=== PATIENT | female | born 1980 | race Caucasian/White ===

== ENCOUNTER 2017-07-10 00:20 | Inpatient (IN) | payer BC ==
[~2017-07-10] VITALS: Ht 175.3 cm; Wt 76.2 kg
[2017-07-10] MEDS ORDERED: OXYTOCIN/0.9 % SODIUM CHLORIDE 1,000 ML IV SCH (00:31)
[2017-07-10 01:30] LABS: HEMOGLOBIN 8.6 g/dL (12.0-16.0); LYMPHOCYTES # (AUTO) 1.9 K/uL (1.0-5.5)
[2017-07-10 01:48] LABS: BASOPHILS % (AUTO) 0.4 % (0.0-2.0); EOSINOPHILS # (AUTO) 0.1 K/uL (0.0-0.4); EOSINOPHILS % (AUTO) 0.8 % (0.0-4.0); HEMATOCRIT 26.4 % (36-48); LYMPHOCYTES % (AUTO) 27.2 % (20.5-51.5); MEAN CORPUSCULAR HEMOGLOBIN 22 pg (27-31); MEAN CORPUSCULAR HGB CONC 32 % (32-36); MEAN CORPUSCULAR VOLUME 68 fL (79.0-98.0); MONOCYTES # (AUTO) 0.5 K/uL (0.0-1.0); MONOCYTES % (AUTO) 7.9 % (1.7-9.3); NEUTROPHILS # (AUTO) 4.4 K/uL (1.8-7.7); NEUTROPHILS % (AUTO) 63.7 % (40.0-70.0); PLATELET COUNT (AUTO) 180 K/uL (130-430); RED BLOOD CELL COUNT(AUTO) 3.87 MIL/uL (4.2-6.2); RED CELL DISTRIBUTION WIDTH 17.2 % (9.0-15.0); WHITE BLOOD COUNT (AUTO) 6.9 K/uL (4.8-10.8)
[2017-07-10] MEDS: LR 1,000 ML IV SCH ×2 (01:56→09:19)
[2017-07-10] MEDS: NALBUPHINE HCL 10 MG/ML AMP IVP PRN ×2 (05:31→09:36)
[2017-07-10] MEDS ORDERED: fentaNYL CITRATE/PF 100 MCG/2 ML AMP ONE (07:46)
[2017-07-10] MEDS ORDERED: ROPIVACAINE 0.2% 100 ML ONE (07:47)
[2017-07-10 08:20] VITALS: BP_SYST 115
[2017-07-10] MEDS ORDERED: LR 500 ML IV ONE (10:35)
[2017-07-10] MEDS ORDERED: FENT2mCg/mL-ROPIVA0.2%/NS EPID 150 ML EP SCH (10:45)
[2017-07-10] MEDS ORDERED: TERBUTALINE SULFATE 1 MG/ML VIAL SUBCUT ONE (11:51)
[2017-07-10] MEDS ORDERED: TERBUTALINE SULFATE 1 MG/ML VIAL ONE (11:51)
[2017-07-10] MEDS ORDERED: ceFAZolin SODIUM 1 GM VIAL ONE (11:54)
[2017-07-10] MEDS ORDERED: CEFAZOLIN 1 GM IVPB PREMIX 100 ML IV ONE (11:55)
[2017-07-10] MEDS ORDERED: MORPHINE SULFATE 10MG/10ML PF AMP EP SCH (12:30)
[2017-07-10] MEDS ORDERED: DIPHENHYDRAMINE INJ 50 MG/ML VIAL IVP PRN (12:30)
[2017-07-10] MEDS ORDERED: ONDANSETRON HCL 4 MG/2 ML VIAL IVP PRN (12:30)
[2017-07-10] MEDS ORDERED: fentaNYL CITRATE/PF 100 MCG/2 ML AMP IVP PRN ×2 (12:30)
[2017-07-10] MEDS ORDERED: METOCLOPRAMIDE HCL 10 MG/2 ML VIAL IVP PRN (12:30)
[2017-07-10] MEDS ORDERED: KETOROLAC TROMETHAMINE 60 MG/2 ML VIAL IM PRN (12:30)
[2017-07-10] MEDS ORDERED: NALOXONE HCL 0.4 MG/ML AMP (NARCAN) IVP PRN ×2 (12:30)
[2017-07-10] MEDS ORDERED: NALBUPHINE HCL 10 MG/ML AMP IVP PRN (12:30)
[2017-07-10] MEDS ORDERED: MEASLES,MUMPS&RUBELLA VACC/PF 12500 UNIT/0.5 ML VIAL SUBQ PRN (12:45)
[2017-07-10] MEDS ORDERED: DIPH-TET-PERTUS Vaccine 0.5 ML VIAL (ADACEL) I.M. PRN (12:45)
[2017-07-10] MEDS ORDERED: RHO(D) IMMUNE GLOBULIN/MALTOSE 1500 UNITS/1.3 ML (WINHRO) IM PRN (12:45)
[2017-07-10] MEDS ORDERED: LANOLIN 7 GM OINT. TP PRN (12:45)
[2017-07-10] MEDS ORDERED: BISACODYL 10 MG/SUPPOSITORY RC PRN (12:45)
[2017-07-10] MEDS ORDERED: OXYTOCIN/0.9 % SODIUM CHLORIDE 1,000 ML IV ONE (12:45)
[2017-07-10] MEDS ORDERED: ANUSOL 1 EA SUPP.RECT (PREPARATION H) RC PRN (12:45)
[2017-07-10] MEDS ORDERED: LR 1,000 ML IV SCH (12:45)
[2017-07-10 12:51] VITALS: BP_SYST 108
[2017-07-10] MEDS ORDERED: KETOROLAC TROMETHAMINE 60 MG/2 ML VIAL IM ONE (14:44)
[2017-07-10] MEDS ORDERED: IBUPROFEN 600 MG TABLET PO SCH (18:00)
[2017-07-10] MEDS: CEFAZOLIN 1 GM IVPB PREMIX 50 ML IV SCH ×2 (18:01→23:56)
[2017-07-10] MEDS ORDERED: TEMAZEPAM 15 MG CAPSULE PO PRN (21:00)
[2017-07-11] MEDS: CEFAZOLIN 1 GM IVPB PREMIX 50 ML IV SCH (06:11)
[2017-07-11] MEDS: IBUPROFEN 600 MG TABLET PO SCH ×3 (06:12→18:41)
[2017-07-11] MEDS ORDERED: LIDOCAINE PF 2%, 200 MG/10 ML AMPUL.LUER (EPIDURAL) INJ ONE (06:50)
[2017-07-11 07:04] LABS: BASOPHILS % (AUTO) 0.3 % (0.0-2.0); EOSINOPHILS % (AUTO) 0.1 % (0.0-4.0); HEMATOCRIT 22.6 % (36-48); HEMOGLOBIN 7.2 g/dL (12.0-16.0); LYMPHOCYTES # (AUTO) 1.2 K/uL (1.0-5.5); LYMPHOCYTES % (AUTO) 13.4 % (20.5-51.5); MEAN CORPUSCULAR HEMOGLOBIN 22 pg (27-31); MEAN CORPUSCULAR HGB CONC 32 % (32-36); MEAN CORPUSCULAR VOLUME 69 fL (79.0-98.0); MONOCYTES # (AUTO) 0.5 K/uL (0.0-1.0); MONOCYTES % (AUTO) 6.1 % (1.7-9.3); NEUTROPHILS # (AUTO) 7.1 K/uL (1.8-7.7); NEUTROPHILS % (AUTO) 80.1 % (40.0-70.0); PLATELET COUNT (AUTO) 181 K/uL (130-430); RED BLOOD CELL COUNT(AUTO) 3.27 MIL/uL (4.2-6.2); RED CELL DISTRIBUTION WIDTH 16.9 % (9.0-15.0); WHITE BLOOD COUNT (AUTO) 8.8 K/uL (4.8-10.8)
[2017-07-11] MEDS: OXYCODONE/ACETAMINOPHEN 5-325 TABLET PO PRN ×3 (13:15→21:26)
[2017-07-11] MEDS: SIMETHICONE 80 MG TAB.CHEW PO PRN ×3 (13:18→20:24)
[2017-07-11] MEDS: DOCUSATE SODIUM 100 MG CAPSULE PO PRN (20:24)
[2017-07-12] MEDS: OXYCODONE/ACETAMINOPHEN 5-325 TABLET PO PRN ×3 (03:15→21:10)
[2017-07-12] MEDS: SIMETHICONE 80 MG TAB.CHEW PO PRN ×3 (06:10→18:11)
[2017-07-12] MEDS: DOCUSATE SODIUM 100 MG CAPSULE PO PRN ×2 (06:10→18:11)
[2017-07-12] MEDS: IBUPROFEN 600 MG TABLET PO SCH ×4 (06:10→18:12)
[2017-07-12] MEDS: SENNOSIDES/DOCUSATE SODIUM 1 TAB TABLET(SENOKOT-S) PO PRN (18:11)
[2017-07-13] MEDS: IBUPROFEN 600 MG TABLET PO SCH ×4 (06:10→17:42)
[2017-07-13] MEDS: DOCUSATE SODIUM 100 MG CAPSULE PO PRN ×3 (06:10→20:25)
[2017-07-13] MEDS: OXYCODONE/ACETAMINOPHEN 5-325 TABLET PO PRN ×3 (08:51→20:25)
[2017-07-13] MEDS: SIMETHICONE 80 MG TAB.CHEW PO PRN ×2 (15:14→20:25)
[2017-07-13] MEDS: SENNOSIDES/DOCUSATE SODIUM 1 TAB TABLET(SENOKOT-S) PO PRN (20:25)
== END 2017-07-13 20:55 | disposition home or self-care (01) | DRG 766 ==
LOC: SPU 00:20
PROVIDERS: ADMIT Obstetrics & Gynecology; ATTEND Obstetrics & Gynecology
PROC: 10D00Z1 Extraction of Products of Conception, Low, Open Approach (ICD-10-PCS; principal; 2017-07-10 11:30)
DX: O36.63X0 Maternal care for excessive fetal growth, third trimester, not applicable or unspecified (principal); D56.3 Thalassemia minor; O77.9 Labor and delivery complicated by fetal stress, unspecified; Z3A.39 39 weeks gestation of pregnancy; Z37.0 Single live birth
CPT/HCPCS: 36415; 85025; 86592; 86886; 86900; 86901; 88307; 94760; J0690; J1885; J2001; J2300; J2405; J2590; J2795; J3010; J3105; J7120

== ENCOUNTER 2020-03-31 09:17 | Outpatient (CLI) | payer BC ==
[2020-03-31] MEDS ORDERED: BARIUM SULFATE 135 ML SUSP.RECON (E-Z-HD) PO ONE (09:28)
== END 2020-03-31 19:49 | disposition home or self-care (01) ==
LOC: SRD 09:17
PROVIDERS: ATTEND Otolaryngology
DX: K44.9 Diaphragmatic hernia without obstruction or gangrene (principal)
CPT/HCPCS: 74220-TC

== ENCOUNTER 2021-12-05 10:02 | Outpatient (CLI) | payer SELFPAY ==
[2021-12-05] MEDS ORDERED: HYDROmorphone 1 MG/ML INJ. CARTRIDGE ONE (13:41)
== END 2021-12-05 16:00 | disposition home or self-care (01) ==
LOC: SUS 10:02
PROVIDERS: ATTEND Otolaryngology
DX: E04.1 Nontoxic single thyroid nodule (principal)
CPT/HCPCS: 88307; J1170